=== PATIENT | female | born 1940 | race Caucasian/White ===

== ENCOUNTER → 2016-08-26 | Outpatient (CLI) | payer MEDICARE ==
[~2016-08-26] MED LIST: CALC-787 PO; CYAN10007 PO; D50KC PO; LIRA0.6P SQ; LISI5TAB PO; LVT.1T PO; MTF500T PO; SIMV10TA3 PO
--- NOTE | 2016-08-26 17:10 | Diagnostic Imaging Report ---
PROCEDURE: US Thyroid. TECHNIQUE: Multiple real-time grayscale images were obtained of the thyroid in various projections. FINDINGS: Thyromegaly. FINDINGS: The right thyroid lobe is 3.2 x 1.1 x 0.8 cm. The left lobe is 3.8 x 0.9 x 1.1 cm. The thyroid gland is heterogeneous with no focal mass identified. No significantly increased vascularity seen. IMPRESSION: Heterogeneous thyroid gland with no discrete mass. This could be sequelae of prior thyroiditis. Dictated by: Dictated on workstation # [id number]
== END ==
LOC: RAD 12:05
PROVIDERS: ATTEND Nurse Practitioner Family
DX: E01.0 Iodine-deficiency related diffuse (endemic) goiter (principal)
CPT/HCPCS: 76536

== ENCOUNTER → 2016-08-26 | Outpatient (CLI) | payer MEDICARE ==
[~2016-08-26] VITALS: Ht 152.4 cm; Wt 66.7 kg
[~2016-08-26] MED LIST changes: +ZOLEDRONATE 5 MG/100 ML (RECLAST) BTL IV ONE
[2016-08-26 13:16] VITALS: BP 126/65
[2016-08-26 13:35] VITALS: BP 126/65
== END ==
LOC: SDC 12:43
PROVIDERS: ATTEND Nurse Practitioner Family
DX: M81.0 Age-related osteoporosis without current pathological fracture (principal)
CPT/HCPCS: 96365

== ENCOUNTER → 2017-07-03 | Outpatient (CLI) | payer MEDICARE ==
[~2017-07-03] MED LIST changes: -ZOLEDRONATE 5 MG/100 ML (RECLAST) BTL IV ONE
--- NOTE | 2017-07-03 18:14 | Diagnostic Imaging Report ---
INDICATION: Osteoporosis. COMPARISON: Prior study of 06/09/2014. EXAMINATION: Bone mineral analysis of the lumbar spine and both hips was performed. FINDINGS: The bone mineral density of the lumbar spine at L2-L4 is 0.938 with a T-score of -2.2. This compares with 1.011 and -1.6. The bone mineral density of the left femoral neck is 0.758 with T-score of -2.0. This compares with 0.758 and -2.0 on prior. Bone mineral density of the right femoral neck is 0.690 with a T-score of -2.5. This compares to 0.710 and -2.4. IMPRESSION: Findings consistent with osteopenia of the lumbar spine and left femoral neck with osteoporosis of the right femoral neck. Dictated by: Dictated on workstation # [id number]
== END ==
LOC: RAD 10:51
PROVIDERS: ATTEND Nurse Practitioner Family
DX: M81.0 Age-related osteoporosis without current pathological fracture (principal); M85.88 Other specified disorders of bone density and structure, other site
CPT/HCPCS: 77080

== ENCOUNTER 2018-08-28 09:59 | Outpatient (CLI) | payer MEDICARE ==
[~2018-08-28] VITALS: Ht 152.4 cm; Wt 66.7 kg
[2018-08-28] MEDS ORDERED: ZOLEDRONATE (NON-FORMULARY) 100 ML IV ONE (10:15)
[2018-08-28 10:45] VITALS: BP 149/71
== END 2018-08-28 10:45 | disposition home or self-care (01) ==
LOC: SDC 09:59
PROVIDERS: ATTEND Nurse Practitioner Family
DX: M81.0 Age-related osteoporosis without current pathological fracture (principal)
CPT/HCPCS: 96365

== ENCOUNTER 2019-05-06 17:06 | Outpatient (CLI) | payer MEDICARE ==
[~2019-05-06] VITALS: Ht 30.5 cm; Wt 60.3 kg
--- NOTE | 2019-05-06 17:20 | NUR ---
Patient arrived on unit, in room 406. Patient oriented to room and call light.
[2019-05-06] MEDS ORDERED: ONDANSETRON 4 MG/2 ML (SDV) Z0FRAN IV PRN (17:45)
[2019-05-06 17:51] LABS: BASOPHILS % (AUTO) 0 % (0-10); EOSINOPHILS # (AUTO) 0.1 10^3/uL (0.0-0.3); EOSINOPHILS % (AUTO) 1 % (0-10); HEMATOCRIT 42 % (35-52); HEMOGLOBIN 13.8 G/DL (11.5-16.0); LYMPHOCYTES # (AUTO) 0.9 X 10^3 (1.0-4.0); LYMPHOCYTES % (AUTO) 9 % (12-44); MEAN CORPUSCULAR HEMOGLOBIN 30 PG (25-34); MEAN CORPUSCULAR HGB CONC 33 G/DL (32-36); MEAN CORPUSCULAR VOLUME 92 FL (80-99); MEAN PLATELET VOLUME 9.6 FL (7.4-10.4); MONOCYTES # (AUTO) 0.3 X 10^3 (0.0-1.0); MONOCYTES % (AUTO) 3 % (0-12); NEUTROPHILS # (AUTO) 9.3 X 10^3 (1.8-7.8); NEUTROPHILS % (AUTO) 87 % (42-75); PLATELET COUNT 310 10^3/uL (130-400); RED CELL DISTRIBUTION WIDTH 13.6 % (10.0-14.5); WHITE BLOOD COUNT 10.7 10^3/uL (4.3-11.0)
[2019-05-06 18:08] LABS: ALANINE AMINOTRANSFERASE 29 U/L (0-55); ALBUMIN 4.3 GM/DL (3.2-4.5); ALKALINE PHOSPHATASE 42 U/L (40-136); BILIRUBIN,TOTAL 0.4 MG/DL (0.1-1.0); BUN/CREATININE RATIO 31; CALCIUM 9.1 MG/DL (8.5-10.1); CARBON DIOXIDE 21 MMOL/L (21-32); CHLORIDE 106 MMOL/L (98-107); GFR ESTIMATED > 60; GLUCOSE 117 MG/DL (70-105); MAGNESIUM 1.8 MG/DL (1.6-2.4); POTASSIUM 4.3 MMOL/L (3.6-5.0); SODIUM 139 MMOL/L (135-145); TOTAL PROTEIN 7.6 GM/DL (6.4-8.2)
[2019-05-06 18:30] LABS: BAND NEUTROPHILS 3 %; EOSINOPHILS % (MANUAL) 2 %; LYMPHOCYTES % (MANUAL) 9 %; MONOCYTES % (MANUAL) 2 %; NEUTROPHILS % (MANUAL) 84 %; RBC MORPH N
[2019-05-06] MEDS: LACTATED RINGERS 2,000 ML IV SCH ×2 (18:39→19:18)
[2019-05-06 19:19] VITALS: BP 122/63
--- NOTE | 2019-05-06 20:40 | NUR ---
Spoke with tania BOYKIN and informed her that pts temperature has increased but all other vital signs remain the same. pt does not feel any better but does not feel any worse. pt states she can treat her temperature at home but isnt so sure and would rather her stay at the hospital. per tania [place] pt to go home and follow up with her office in the am if needed. pt wheeled out in wheelchair by pct with all pts belongings. pt stable at this time.
[2019-05-06 20:42] VITALS: BP 122/56
--- OUTSIDE RECORDS SUMMARY | 2019-06-02 00:44 | XMS REPORT ---
Author Author Anabel Latif Organization [facility] Address [address] [place], [place] [address] Care Team Providers Care Under Sheriff Name Role Phone Noah Latif PCP Allergies and Adverse Reactions Name Reaction Notes PENICILLINS SULFA (SULFONAMIDES) aspirin iodine Plan of Treatment Planned Activity Comments Planned Date Planned Time Plan/Goal [facility] 05/15/2019 12:00 AM Medications Active Name Start Date Estimated Completion Date SIG Co mments metformin 500 mg oral tablet lisinopril 5 mg oral tablet take 1 tablet (5 mg) by oral route once daily levothyroxine oral Vitamin D3 Complete 18 mg iron-800 mcg-150 mg oral tablet vitamin Z91-rxabq acid 500-400 mcg oral tablet Calcium 600 600 mg (1,500 mg) oral tablet Combigan 0.2-0.5 % ophthalmic drops instill 1 drop into right eye by ophthalmic route every 12 hours meclizine 25 mg oral tablet 10/14/2017 take 1 tablet (25 mg) by oral route 4 times per day as needed Ozempic 0.25 mg or 0.5 mg(2 mg/1.5 mL) subcutaneous pen injector inject 0.2 milliliter (0.25 mg) by subcutaneous route once weekly on the same day of each week, in the abdomen, thighs, or upper arm rotating injection sites Name Start Date Expiration Date SIG Comments simvastatin 10 mg oral tablet take 1 tabl et by oral route daily triamcinolone acetonide 0.5 % topical cream 12/13/2014 apply a thin layer to the affected area(s) by topical route 3 times per day promethazine-codeine 6.25-10 mg/5 mL oral syrup 11/04/2016 take 5 milliliters by oral route every 6 hours as needed, not to exceed 30 mL in 24 hours pantoprazole 40 mg oral tablet,delayed release (DR/EC) 12/17/2016 take 1 tablet (40 mg) by oral route once daily cefdinir 300 mg oral capsule 04/16/2017 grecia e 1 capsule (300 mg) by oral route every 12 hours for 7 days fluticasone 50 mcg/actuation nasal spray,suspension 04/16/2017 inhale 1 spray (50 mcg) in each nostril by intranasal route 2 times per day Keflex 500 mg oral capsule 12/29/2017 01/03/2018 take 1 capsule (500 mg) by oral route every 12 hours for 5 days Zofran ODT 4 mg oral tablet,disintegrating 12/29/2017 018 1 tablet every 8 hrs prn nausea. May repeat dose one time per 8 hour time period if not effective Discontinued Name Start Date Discontinued Date SIG Comments Victoza 3-Shree 0.6 mg/0.1 mL (18 mg/3 mL) subcutaneous pen injector 10/08/2018 Problem List Description Status Onset Calculus of kidney Active 05/31/2014 Hypothyroidism Active 09/23/2014 Hypertension Active 09/23/2014 Hyperlipemia Active 09/23/2014 Diabetes type 2, controlled Active 09/23/2014 Vital Signs Date Time BP-Sys(mm[Hg] BP-Kayleen(mm[Hg]) HR(bpm) RR(rpm) Temp WT HT HC BMI BSA BMI Percentile O2 Sat(%) 10/08/2018 3:57:00 PM 130 mmHg 84 mmHg 72 bpm 18 rpm 97.8 F 134 lbs 60 in 26.1698 kg/m 1.6041 m 97 % 04/09/2018 9:55:00 AM 130 mmHg 78 mmHg 62 bpm 14 rpm 97.9 F 153.25 lbs 60 i n 29.93 kg/m2 1.72 m2 98 % 01/08/2018 8:12:00 AM 130 mmHg 88 mmHg 81 bpm 14 rpm 98.1 F 153.375 lbs 60 i n 29.9537 kg/m 1.7161 m 97 % 09/08/2017 3:04:00 PM 144 mmHg 70 mmHg 73 bpm 16 rpm 98.6 F 153.75 lbs 60 in 30.03 kg/m2 1.72 m2 98 % 04/16/2017 10:59:00 AM 120 mmHg 76 mmHg 88 bpm 16 rpm 11/15/2016 9:20:00 AM 120 mmHg 64 mmHg 82 bpm 16 rpm 98.2 F 154 lbs 60 in 30.08 kg/m2 1.72 m2 98 % 11/04/2016 3:38:00 PM 134 mmHg 90 mmHg 90 bpm 16 rpm 98.3 F 153 lbs 60 in 29.8805 kg/m 1.714 m 97 % 07/11/2014 10:31:00 AM 126 mmHg 74 mmHg 68 bpm 18 rpm 146.5 lbs 60 in 28.61 kg/m2 1.68 m2 98 % 05/18/2014 11:17:00 AM 150 lbs 60 in 29.2946 kg/m 1.6972 m 05/02/2014 10:54:00 AM 149 lbs 60 in 29.10 kg/ m2 1.69 m2 Social History Name Description Comments Alcohol Light Tobacco Never smoker History of Procedures Date Ordered Description Order Status 03/18/2017 12:00 AM [facility] MEDICARE - flu vaccine administratio n Reviewed 03/18/2017 12:00 AM INFLUENZA VACCINE SPLT PRSRV FREE INC AN TIGEN IM Reviewed 09/08/2017 12:00 AM RADEX ELBOW 2 VIEWS Reviewed 04/02/2018 12:00 AM X-RAY EXAM OF ABDOMEN Reviewed 03/09/2018 12:00 AM [facility] MEDICARE - flu vaccine administratio n Reviewed 03/09/2018 12:00 AM INFLUENZA VACCINE SPLT PRSRV FREE INC AN TIGEN IM Reviewed 04/09/2018 12:00 AM URINALYSIS AUTO W/SCOPE Reviewed 10/07/2018 12:00 AM X-RAY EXAM OF ABDOMEN Reviewed Results Summary Date and Description Results 04/09/2018 2:41 PM COLOR YELLOW APPEARANCE DANIEL R SPEC GRAV 1.010 pH 5.5 PROTEIN NEGATIVE GLUCOSE NEGATIVE KETONE NEGATIVE BILIRUBIN NEGATIVE BLOOD NEGATIVE NITRITE NEGATIVE LEUK SCREEN TRACE WBC/HPF 0-5 RBC/HPF NEGATIVE CASTS/LPF NEGATIVE CRYSTALS TRACE AMORPH MUCOUS THRDS NEGATIVE BACTERIA FEW EPITH CELLS FEW SQUAMOUS TRICHOMONAS NEGATIVE YEAST NEGATIVE CULT SET UP? NO History Of Immunizations Name Date Admin Mfg Name Mfg Code Trade Name Lot# Route Inj Vis Given Vis Pub CVX Influenza 03/18/2017 sanofi pasteur PMC FLUZONE-HIGH DOSE [id number] In tramuscular Left Deltoid 03/18/2017 01/06/2015 135 Influenza 03/09/2018 sanofi pasteur PMC FLUZONE-HIGH DOSE [id number] Int ramuscular Left Deltoid 03/09/2018 06/02/2018 135 History of Past Illness Name Date of Onset Comments Calculus of kidney 05/31/2014 Hypothyroidism 09/23/2014 Hypertension 09/23/2014 Hyperlipemia 09/23/2014 Diabetes type 2, controlled 09/23/2014 Calculus of kidney May 18 2014 2:28PM Calculus of kidney Jul 11 2014 10:34AM Diabetes type 2, controlled Jul 11 2014 10:34AM Hyperlipemia Jul 11 2014 10:34AM Hypertension Jul 11 2014 10:34AM Hypothyroidism Jul 11 2014 10:34AM PND (post-nasal drip) Nov 04 2016 3:41PM GERD (gastroesophageal reflux disease) Nov 04 2016 3:41PM Cough Nov 04 2016 3:41PM Acute mucoid otitis media of right ear Nov 15 2016 9:23AM Vertigo Nov 15 2016 9:23AM Flu Vaccine Mar 18 2017 1:40PM Acute right otitis media Apr 16 2017 11:10AM Vertigo Apr 16 2017 11:10AM Elbow pain, left Sep 08 2017 3:08PM Kidney stone Jan 01 2018 12:42PM Kidney Stones Jan 08 2018 8:15AM Flu Vaccine Mar 09 2018 10:46AM Kidney Stones Apr 09 2018 9:59AM Kidney Stones Oct 08 2018 3:58PM Kidney stone Oct 13 2018 3:07PM Payers Insurance Name Company Name Plan Name Plan Number Policy Number Horace cy Group Number Start Date Medicare RHC Medicare RHC [id number] N/ A [facility] [id number] N/ A Medicare Part A Medicare Part A [id number] August Medicare Part A Medicare - Lab/Xray [id number] August Medicare RHC Medicare RHC [id number] FriOctober 31, 2016 Medicare Part B Medicare Of [place] [id number] N/A History of Encounters Visit Date Visit Type Provider 10/08/2018 Office visit Noah Latif MD 04/09/2018 Office visit Noah Latif MD 03/09/2018 Nurse visit JONATHON ALFARO OUTSOLE SCHEDULER 01/08/2018 Office visit Noah Latif MD 12/29/2017 Surgery Noah Latif MD 09/08/2017 Office visit JONATHON ALFARO OUTSOLE SCHEDULER 04/16/2017 Office visit JONATHON ALFARO OUTSOLE SCHEDULER 03/18/2017 Nurse visit JONATHON ALFARO OUTSOLE SCHEDULER 11/15/2016 Office visit JONATHON ALFARO OUTSOLE SCHEDULER 11/04/2016 Office visit JONATHON ALFARO OUTSOLE SCHEDULER 07/11/2014 Office visit JONATHON ALFARO OUTSOLE SCHEDULER 05/18/2014 Office visit Jonathan Staton MD 05/02/2014 Office visit Jonathan Staton MD 04/19/2014 [facility] Jonathan Staton MD 04/19/2014 [facility] Salvador Crisostomo MD 04/19/2014 [facility] Jonathan Staton MD
--- OUTSIDE RECORDS SUMMARY | 2019-06-02 00:44 | XMS REPORT ---
Author Author Anabel Latif [facility] Address [address] [place], [place] [address] Care Team Providers Care Maxillofacial Pathology Name Role Phone Noah Latif PCP Allergies and Adverse Reactions Name Reaction Notes PENICILLINS SULFA (SULFONAMIDES) Aspirin iodine Plan of Treatment Planned Activity Comments Planned Date Planned Time Plan/Goal ABDOMEN ONE VIEW 10/07/2018 12:00 AM Medications Active Name Start Date Estimated Completion Date SIG Co mments metformin 500 mg oral tablet Victoza 3-Shree 0.6 mg/0.1 mL (18 mg/3 mL) subcutaneous pen injector lisinopril 5 mg oral tablet take 1 tablet (5 mg) by oral route once daily levothyroxine oral Vitamin D3 Complete 18 mg iron-800 mcg-150 mg oral tablet vitamin C88-eetsr acid 500-400 mcg oral tablet Calcium 600 600 mg (1,500 mg) oral tablet Combigan 0.2-0.5 % ophthalmic drops instill 1 drop into right eye by ophthalmic route every 12 hours meclizine 25 mg oral tablet 10/14/2017 take 1 tablet (25 mg) by oral route 4 times per day as needed Name Start Date Expiration Date SIG Comments [...] 8 hour time period if not effective Problem List Description Status Onset Calculus of kidney Active 05/31/2014 Hypothyroidism Active 09/23/2014 Hypertension Active 09/23/2014 Hyperlipemia Active 09/23/2014 Diabetes type 2, controlled Active 09/23/2014 Vital Signs Date Time BP-Sys(mm[Hg] BP-Kayleen(mm[Hg]) HR(bpm) RR(rpm) Temp WT HT HC BMI BSA BMI Percentile O2 Sat(%) 04/09/2018 9:55:00 AM 130 mmHg 78 mmHg 62 bpm 14 rpm 97.9 F 153.25 lbs 60 i n 29.9293 kg/m 1.7154 m 98 % 01/08/2018 8:12:00 AM 130 mmHg 88 mmHg 81 bpm 14 rpm 98.1 F 153.375 lbs 60 i n 29.95 kg/m2 1.72 m2 97 % 09/08/2017 3:04:00 PM 144 mmHg 70 mmHg 73 bpm 16 rpm 98.6 F 153.75 lbs 60 in 30.0269 kg/m 1.7182 m 98 % 04/16/2017 10:59:00 AM 120 mmHg 76 mmHg 88 bpm 16 rpm 11/15/2016 9:20:00 AM 120 mmHg 64 mmHg 82 bpm 16 rpm 98.2 F 154 lbs 60 in 30.08 kg/m2 1.7196 m 98 % 11/04/2016 3:38:00 PM 134 mmHg 90 mmHg 90 bpm 16 rpm 98.3 F 153 lbs 60 in 29.8805 kg/m 1.71 m2 97 % 07/11/2014 10:31:00 AM 126 mmHg 74 mmHg 68 bpm 18 rpm 146.5 lbs 60 in 28.61 kg/m2 1.6772 m 98 % 05/18/2014 11:17:00 AM 150 lbs 60 in 29.2946 kg/m 1.70 m2 05/02/2014 10:54:00 AM 149 lbs 60 in 29.10 kg/ m2 1.6915 m Social History Name Description Comments Alcohol Light Tobacco Never smoker History of Procedures Date Ordered Description Order Status 03/18/2017 12:00 AM [facility] MEDICARE - flu vaccine administratio n Reviewed 03/18/2017 12:00 AM INFLUENZA VACCINE SPLT PRSRV FREE INC AN TIGEN IM Reviewed 09/08/2017 12:00 AM RADEX ELBOW 2 VIEWS Reviewed 04/02/2018 12:00 AM X-RAY EXAM OF ABDOMEN Reviewed 03/09/2018 12:00 AM [facility] MEDICARE - flu vaccine administratio n Reviewed 03/09/2018 12:00 AM INFLUENZA VACCINE SPLT PRSRV FREE INC AN TIGEN IM Reviewed 04/09/2018 12:00 AM URINALYSIS AUTO W/SCOPE Reviewed Results Summary Date and Description Results [...] Influenza 03/18/2017 sanofi pasteur PMC FLUZONE-HIGH DOSE [id number] In tramuscular Left Deltoid 03/18/2017 01/06/2015 135 Influenza 03/09/2018 sanofi pasteur PMC FLUZONE-HIGH DOSE [id number] Int ramuscular Left Deltoid 03/09/2018 06/02/2018 135 [...] 10:46AM Kidney Stones Apr 09 2018 9:59AM Payers Insurance Name Company Name Plan Name Plan Number Policy Number Horace cy Group Number Start Date Medicare RH Medicare RH [id number] N/ A [id number] N/ A Medicare Part A Medicare Part A [id number] August Medicare Part A Medicare - Lab/Xray [id number] August Medicare RH Medicare RHC [id number] FriOctober 31, 2016 Medicare Part B Medicare Of [place] [id number] N/A History of Encounters Visit Date Visit Type Provider 04/09/2018 Office visit Noah Latif MD 03/09/2018 Nurse visit JONATHON ALFARO SUPERVISOR PLASTERING 01/08/2018 Office visit Noah Latif MD 12/29/2017 Surgery Noah Latif MD 09/08/2017 Office visit JONATHON ALFARO SUPERVISOR PLASTERING 04/16/2017 Office visit JONATHON ALFARO SUPERVISOR PLASTERING 03/18/2017 Nurse visit JONATHON ALFARO SUPERVISOR PLASTERING 11/15/2016 Office visit JONATHON ALFARO SUPERVISOR PLASTERING 11/04/2016 Office visit JONATHON ALFARO SUPERVISOR PLASTERING 07/11/2014 Office visit JONATHON ALFARO SUPERVISOR PLASTERING 05/18/2014 Office visit Jonathan Staton MD 05/02/2014 Office visit Jonathan Staton MD 04/19/2014 Hospital Jonathan Staton MD 04/19/2014 [facility] Salvador Crisostomo MD 04/19/2014 Hospital Jonathan Staton MD
--- OUTSIDE RECORDS SUMMARY | 2019-06-02 00:44 | XMS REPORT ---
Author Author Anabel Latif [facility] Address [address] [place], [place] [id number] Care Team Providers Care Overnight Houseperson Name Role Phone Noah Latif PCP Allergies and Adverse Reactions Name Reaction Notes PENICILLINS SULFA (SULFONAMIDES) aspirin iodine Plan of Treatment Not available. Medications Active Name Start Date Estimated Completion Date SIG Co mments metformin 500 mg oral tablet lisinopril 5 mg oral tablet take 1 tablet (5 mg) by oral route once daily levothyroxine oral Vitamin D3 Complete 18 mg iron-800 mcg-150 mg oral tablet vitamin S93-augmr acid 500-400 mcg oral tablet Calcium 600 [...] 05/02/2014 10:54:00 AM 149 lbs 60 in 29.0993 k g/m 1.69 m2 Social History Name Description Comments Alcohol Light Tobacco Never smoker History of Procedures Date Ordered Description Order Status 03/18/2017 12:00 AM [facility] MEDICARE - flu vaccine administratio n Reviewed 03/18/2017 12:00 AM INFLUENZA VACCINE SPLT PRSRV FREE INC AN TIGEN IM Reviewed 09/08/2017 12:00 AM RADEX ELBOW 2 VIEWS Reviewed 04/02/2018 12:00 AM X-RAY EXAM OF ABDOMEN Reviewed 03/09/2018 12:00 AM [facility] MEDICARE - flu vaccine administratio n Reviewed 03/09/2018 12:00 AM INFLUENZA VACCINE SPLT PRSRV FREE INC AN TIGEN IM Reviewed 04/09/2018 12:00 AM URINALYSIS AUTO W/SCOPE Reviewed 10/07/2018 12:00 AM X-RAY EXAM OF ABDOMEN Returned Results Summary Date and Description Results 04/09/2018 [...] Influenza 03/18/2017 sanofi pasteur PMC FLUZONE-HIGH DOSE [id number] In tramuscular Left Deltoid 03/18/2017 01/06/2015 135 Influenza 03/09/2018 sanofi pasteur PMC FLUZONE-HIGH DOSE [id number] Int ramuscular Left Deltoid 03/09/2018 06/02/2018 135 [...] 9:59AM Kidney Stones Oct 08 2018 3:58PM Payers Insurance Name Company Name Plan Name Plan Number Policy Number Horace cy Group Number Start Date Medicare RHC Medicare RHC [id number] N/ A [facility] [id number] N/ A Medicare Part A Medicare Part A [id number] August Medicare Part A Medicare - Lab/Xray [id number] August Medicare RHC Medicare RHC [id number] FriOctober 31, 2016 Medicare Part B Medicare Of [place] [id number] N/A History of Encounters Visit Date Visit Type Provider 10/08/2018 Office visit Noah Latif MD 04/09/2018 Office visit Noah Latif MD 03/09/2018 Nurse visit JONATHON ALFARO COW TRIMMER 01/08/2018 Office visit Noah Latif MD 12/29/2017 Surgery Noah Latif MD 09/08/2017 Office visit JONATHON ALFARO COW TRIMMER 04/16/2017 Office visit JONATHON ALFARO COW TRIMMER 03/18/2017 Nurse visit JONATHON ALFARO COW TRIMMER 11/15/2016 Office visit JONATHON ALFARO COW TRIMMER 11/04/2016 Office visit JONATHON ALFARO COW TRIMMER 07/11/2014 Office visit JONATHON ALFARO APRN 05/18/2014 Office visit V Maddie Staton MD 05/02/2014 Office visit Jonathan Staton MD 04/19/2014 [facility] Jonathan Staton MD 04/19/2014 [facility] Eli Crisostomo MD 04/19/2014 [facility] Jonathan Staton MD
--- OUTSIDE RECORDS SUMMARY | 2019-06-02 00:45 | XMS REPORT ---
Author Author Anabel ALFARO [facility] Address [address] [place], [place] [id number] Care Team Providers Care Network Controller Name Role Phone JONATHON ALFARO PCP Allergies and Adverse Reactions Name Reaction Notes PENICILLINS SULFA (SULFONAMIDES) Aspirin iodine Plan of Treatment Planned Activity Comments Planned Date Planned Time Plan/Goal ABDOMEN ONE VIEW 04/02/2018 12:00 AM Medications Active Name Start Date Estimated Completion Date SIG Co mments metformin 500 mg oral tablet Victoza 3-Shree 0.6 mg/0.1 mL (18 mg/3 mL) subcutaneous pen injector lisinopril 5 mg oral tablet take 1 tablet (5 mg) by oral route once daily levothyroxine oral Vitamin D3 Complete 18 mg iron-800 mcg-150 mg oral tablet vitamin F49-rboyi acid 500-400 mcg oral tablet Calcium 600 600 mg (1,500 mg) oral tablet Combigan 0.2-0.5 % ophthalmic drops instill 1 drop into right eye by ophthalmic route every 12 hours meclizine 25 mg oral tablet 10/14/2017 take 1 tablet (25 mg) by oral route 4 times per day as needed Keflex 500 mg oral capsule 12/29/2017 01/03/2018 take 1 capsule (500 mg) by oral route every 12 hours for 5 days Zofran ODT 4 mg oral tablet,disintegrating 12/29/2017 018 1 tablet every 8 hrs prn nausea. May repeat dose one time per 8 hour time period if not effective Name Start Date Expiration Date SIG Comments [...] by intranasal route 2 times per day Problem List Description Status Onset Calculus of kidney Active 05/31/2014 Hypothyroidism Active 09/23/2014 Hypertension Active 09/23/2014 Hyperlipemia Active 09/23/2014 Diabetes type 2, controlled Active 09/23/2014 Vital Signs Date Time BP-Sys(mm[Hg] BP-Kayleen(mm[Hg]) HR(bpm) RR(rpm) Temp WT HT HC BMI BSA BMI Percentile O2 Sat(%) 09/08/2017 3:04:00 PM 144 mmHg 70 mmHg [...] Ordered Description Order Status 03/18/2017 12:00 AM [facility] MEDICARE - flu vaccine administratio n Reviewed 03/18/2017 12:00 AM INFLUENZA VACCINE SPLT PRSRV FREE INC AN TIGEN IM Reviewed 09/08/2017 12:00 AM RADEX ELBOW 2 VIEWS Reviewed Results Summary Not available. History Of Immunizations Name Date Admin Mfg Name Mfg Code Trade Name Lot# Route Inj Vis Given Vis Pub CVX Influenza 03/18/2017 sanofi [facility] PMC FLUZONE-HIGH DOSE [id number] In tramuscular Left Deltoid 03/18/2017 01/06/2015 135 History of Past Illness Name Date [...] 3:08PM Kidney stone Jan 01 2018 12:42PM Payers Insurance Name Company Name Plan Name Plan Number Policy Number Horace cy Group Number Start Date Medicare RHC Medicare RHC [id number] FriOctober 31, 2016 BCBS [facility] [id number] N/ A Medicare Part A Medicare Part A [id number] August Medicare Part A Medicare - Lab/Xray [id number] August Medicare Part B Medicare Of [place] [id number] N/A History of Encounters Visit Date Visit Type Provider 09/08/2017 Office visit JONATHON ALFARO BEEF SPECIALIST 04/16/2017 Office visit JONATHON ALFARO BEEF SPECIALIST 03/18/2017 Nurse visit JONATHON ALFARO BEEF SPECIALIST 11/15/2016 Office visit JONATHON ALFARO BEEF SPECIALIST 11/04/2016 Office visit JONATHON ALFARO BEEF SPECIALIST 07/11/2014 Office visit JONATHON ALFARO BEEF SPECIALIST 05/18/2014 Office visit V Maddie Staton MD 05/02/2014 Office visit V Maddie Staton MD 04/19/2014 [facility] V Maddie Staton MD 04/19/2014 [facility] Eli Crisosotmo MD 04/19/2014 [facility] Jonathan Staton MD
--- OUTSIDE RECORDS SUMMARY | 2019-06-02 00:45 | XMS REPORT ---
Author Author Anabel ALFARO [facility] Address [address] [place], [place] [id number] Care Team Providers Care Agency Owner Name Role Phone JONATHON ALFARO PCP Unavailable Allergies and Adverse Reactions Name Reaction Notes PENICILLINS SULFA (SULFONAMIDES) Aspirin iodine Plan of Treatment Not available. Medications Active Name Start Date Estimated Completion Date SIG Co mments metformin 500 mg oral tablet Victoza 3-Shree 0.6 mg/0.1 mL (18 mg/3 mL) subcutaneous pen injector lisinopril 5 mg oral tablet take 1 tablet (5 mg) by oral route once daily levothyroxine oral Vitamin D3 Complete 18 mg iron-800 mcg-150 mg oral tablet vitamin G01-ftybl acid 500-400 mcg oral tablet Calcium 600 600 mg (1,500 mg) oral tablet Combigan 0.2-0.5 % ophthalmic drops instill 1 drop into right eye by ophthalmic route every 12 hours fluticasone 50 mcg/actuation nasal spray,suspension 11/04/2016 inhale 1 spray (50 mcg) in each nostril by intranasal route 2 times per day pantoprazole 40 mg oral tablet,delayed release (DR/EC) 11/04/2016 take 1 tablet (40 mg) by oral route once daily cefdinir 300 mg oral capsule 11/15/2016 11/22/2016 grecia e 1 capsule (300 mg) by oral route every 12 hours for 7 days meclizine 25 mg oral tablet 11/15/2016 take 1 tablet (25 mg) by oral [...] to exceed 30 mL in 24 hours Problem List Description Status Onset Calculus of kidney Active 05/31/2014 Hypothyroidism Active 09/23/2014 Hypertension Active 09/23/2014 Hyperlipemia Active 09/23/2014 Diabetes type 2, controlled Active 09/23/2014 Vital Signs Date Time BP-Sys(mm[Hg] BP-Kayleen(mm[Hg]) HR(bpm) RR(rpm) Temp WT HT HC BMI BSA BMI Percentile O2 Sat(%) 11/15/2016 9:20:00 AM 120 mmHg 64 mmHg [...] Light Tobacco Never smoker History of Procedures Not available. Results Summary Date and Description Results 04/20/2014 8:15 AM GLUCOSE 125.0 mg/dLSODIUM 14 2.0 mmol/LPOTASSIUM 4.10 mmol/LCHLORIDE 110.0 mmol/LCO2 23.0 mmol/LBUN 14.0 mg/dLCREATININE 0.80 mg/dLCALCIUM 8.30 mg/dLAGE 73 GFR NonAA 71 GFR AA 86 eGFR 60 eGFR AA* 60 WBC 10.7 RBC 4.03 HGB 12.10 g/dLHCT 36.60 %MCV 91.0 fLMCH 30.0 pgMCHC 33.10 g/dLRDW SD 43 RDW CV 13.0 %MPV 10.10 fLPLT 238 NRBC# 0.00 NRBC% 0.0 %NEUT 75.0 %%LYMP 18.90 %%MONO 6.0 %%EOS 0.0 %%BASO 0.10 %#NEUT 8.00 #LYMP 2.01 #MONO 0.64 #EOS 0.00 #BASO 0.01 MANUAL DIFF NOT IND History Of Immunizations Not available. History of Past Illness Name Date of [...] 2016 9:23AM Vertigo Nov 15 2016 9:23AM Payers Insurance Name Company Name Plan Name Plan Number Policy Number Horace cy Group Number Start Date Medicare RHC Medicare RHC [id number] FriOctober 31, 2016 BCBS [facility] [id number] N/ A Medicare Part A Medicare Part A [id number] August Medicare Part A Medicare - Lab/Xray [id number] August Medicare Part B Medicare Of [place] [id number] N/A History of Encounters Visit Date Visit Type Provider 11/15/2016 Office visit JONATHON ALFARO CLIENT SERVICE COORDINATOR 11/04/2016 Office visit JONATHON ALFARO CLIENT SERVICE COORDINATOR 07/11/2014 Office visit JONATHON ALFARO CLIENT SERVICE COORDINATOR 05/18/2014 Office visit Jonathan Staton MD 05/02/2014 Office visit Jonathan Staton MD 04/19/2014 Hospital Jonathan Staton MD 04/19/2014 [facility] Salvador Crisostomo MD 04/19/2014 [facility] Jonathan Staton MD
--- OUTSIDE RECORDS SUMMARY | 2019-06-02 00:45 | XMS REPORT ---
Author Author Anabel ALFARO [facility] Address [address] [place], [place] [id number] Care Team Providers Care Fancy Packer Name Role Phone JONATHON ALFARO PCP Unavailable Allergies and Adverse Reactions Name Reaction Notes PENICILLINS SULFA (SULFONAMIDES) Aspirin iodine Plan of Treatment Planned Activity Comments Planned Date Planned Time Plan/Goal High-Dose Flu vaccine 65 yrs & older, Qu adrivalent, Preservative-free - RHC Medicare 03/18/2017 12:00 AM Medications Active Name Start Date Estimated Completion Date SIG Co mments metformin 500 mg oral tablet Victoza 3-Shree 0.6 mg/0.1 mL (18 mg/3 mL) subcutaneous pen injector lisinopril 5 mg oral tablet take 1 tablet (5 mg) by oral route once daily levothyroxine oral Vitamin D3 Complete 18 mg iron-800 mcg-150 mg oral tablet vitamin L74-xymfk acid 500-400 mcg oral tablet Calcium 600 600 mg (1,500 mg) oral tablet Combigan 0.2-0.5 % ophthalmic drops instill 1 drop into right eye by ophthalmic route every 12 hours fluticasone 50 mcg/actuation nasal spray,suspension 11/04/2016 inhale 1 spray (50 mcg) in each nostril by intranasal route 2 times per day meclizine 25 mg oral tablet 11/15/2016 take 1 tablet (25 mg) by oral route 4 times per day as needed pantoprazole 40 mg oral tablet,delayed release (DR/EC) 12/17/2016 take 1 tablet (40 mg) by oral route once daily Name Start Date Expiration Date SIG Comments [...] to exceed 30 mL in 24 hours cefdinir 300 mg oral capsule 11/15/2016 11/22/2016 grecia e 1 capsule (300 mg) by oral route every 12 hours for 7 days Problem List Description Status Onset Calculus of [...] History of Procedures Not available. Results Summary Not available. History Of Immunizations Not available. History of [...] 9:23AM Flu Vaccine Mar 18 2017 1:40PM Payers Insurance Name Company Name Plan Name Plan Number Policy Number Horace cy Group Number Start Date Medicare RHC Medicare RHC [id number] FriOctober 31, 2016 [facility] [id number] N/ A Medicare Part A Medicare Part A [id number] August Medicare Part A Medicare - Lab/Xray [id number] August Medicare Part B Medicare Of [place] [id number] N/A History of Encounters Visit Date Visit Type Provider 03/18/2017 Nurse visit JONATHON ALFARO DRAW STRING KNOTTER 11/15/2016 Office visit JONATHON ALFARO DRAW STRING KNOTTER 11/04/2016 Office visit JONATHON ALFARO DRAW STRING KNOTTER 07/11/2014 Office visit JONATHON ALFARO DRAW STRING KNOTTER 05/18/2014 Office visit Jonathan Staton MD 05/02/2014 Office visit Jonathan Staton MD 04/19/2014 Hospital Jonathan Staton MD 04/19/2014 [facility] Salvador Crisostomo MD 04/19/2014 [facility] Jonathan Staton MD
--- OUTSIDE RECORDS SUMMARY | 2019-06-02 00:45 | XMS REPORT ---
Author Author Anabel Latif [facility] Address [address] [place], [place] [phone] Care Team Providers Care Head Paper Tester Name Role Phone Noah Latif PCP Allergies [...] mg iron-800 mcg-150 mg oral tablet vitamin R80-seprb acid 500-400 mcg oral tablet Calcium 600 [...] HC BMI BSA BMI Percentile O2 Sat(%) 01/08/2018 8:12:00 AM 130 mmHg 88 mmHg [...] Ordered Description Order Status 03/18/2017 12:00 AM [facility] MEDICARE - flu vaccine administratio n Reviewed 03/18/2017 12:00 AM INFLUENZA VACCINE SPLT PRSRV FREE INC AN TIGEN IM Reviewed 09/08/2017 12:00 AM RADEX ELBOW 2 VIEWS Reviewed Results Summary Not available. History Of Immunizations Name Date Admin Mfg Name Mfg Code Trade Name Lot# Route Inj Vis Given Vis Pub CVX Influenza 03/18/2017 sanofi pasteur PMC FLUZONE-HIGH DOSE [id number] In tramuscular Left Deltoid 03/18/2017 01/06/2015 135 [...] 12:42PM Kidney Stones Jan 08 2018 8:15AM Payers Insurance Name Company Name Plan Name Plan Number Policy Number Horace cy Group Number Start Date Medicare [facility] Medicare [facility] [id number] FriOctober 31, 2016 [id number] N/ A Medicare Part A Medicare Part A [id number] August Medicare Part A Medicare - Lab/Xray [id number] August Medicare Part B Medicare Of [place] [id number] N/A History of Encounters Visit Date Visit Type Provider 01/08/2018 Office visit Noah Latif MD 12/29/2017 Surgery Noah Latif MD 09/08/2017 Office visit JONATHON ALFRAO DETAILER PHARMACEUTICALS 04/16/2017 Office visit JONATHON ALFARO DETAILER PHARMACEUTICALS 03/18/2017 Nurse visit JONATHON ALFARO DETAILER PHARMACEUTICALS 11/15/2016 Office visit JONATHON ALFARO DETAILER PHARMACEUTICALS 11/04/2016 Office visit JONATHON ALFARO DETAILER PHARMACEUTICALS 07/11/2014 Office visit JONATHON ALFARO DETAILER PHARMACEUTICALS 05/18/2014 Office visit Jonathan Staton MD 05/02/2014 Office visit Jonathan Staton MD 04/19/2014 Hospital Jonathan Staton MD 04/19/2014 [facility] Salvador Crisostomo MD 04/19/2014 [facility] Jonathan Staton MD
--- OUTSIDE RECORDS SUMMARY | 2019-06-02 00:45 | XMS REPORT ---
Author Author Anabel ALFARO [facility] Address [address] [place], [place] [phone] Care Team Providers Care Poultry Scalder Name Role Phone JONATHON ALFARO PCP Allergies [...] mg iron-800 mcg-150 mg oral tablet vitamin I01-afprt acid 500-400 mcg oral tablet Calcium 600 [...] Ordered Description Order Status 03/18/2017 12:00 AM [facility] MEDICARE - flu vaccine administratio n Reviewed 03/18/2017 12:00 AM INFLUENZA VACCINE SPLT PRSRV FREE INC AN TIGEN IM Reviewed 09/08/2017 12:00 AM RADEX ELBOW 2 VIEWS Reviewed 03/09/2018 12:00 AM INFLUENZA VACCINE SPLT PRSRV FREE INC AN TIGEN IM Reviewed Results Summary Not available. History Of Immunizations Name Date Admin Mfg Name Mfg Code Trade Name Lot# Route Inj Vis Given Vis Pub CVX Influenza 03/18/2017 sanofi pasteur PMC FLUZONE-HIGH DOSE [id number] In tramuscular Left Deltoid 03/18/2017 01/06/2015 135 Influenza 03/09/2018 sanofi pasteur PMC FLUZONE-HIGH DOSE [id number] Int ramuscular Left Deltoid 03/09/2018 06/02/2017 135 History of Past Illness Name Date [...] 8:15AM Flu Vaccine Mar 09 2018 10:46AM Payers Insurance Name Company Name Plan Name Plan Number Policy Number Horace cy Group Number Start Date Medicare [facility] Medicare [facility] [id number] FriOctober 31, 2016 BCBS [facility] [id number] N/ A Medicare Part A Medicare Part A [id number] August Medicare Part A Medicare - Lab/Xray [id number] August Medicare Part B Medicare Of [place] [id number] N/A History of Encounters Visit Date Visit Type Provider 03/09/2018 Nurse visit JONATHON ALFARO CHAIN MORTISER OPERATOR 01/08/2018 Office visit Noah Latif MD 12/29/2017 Surgery Noah Latif MD 09/08/2017 Office visit JONATHON ALFARO CHAIN MORTISER OPERATOR 04/16/2017 Office visit JONATHON ALFARO CHAIN MORTISER OPERATOR 03/18/2017 Nurse visit JONATHON ALFARO CHAIN MORTISER OPERATOR 11/15/2016 Office visit JONATHON ALFARO CHAIN MORTISER OPERATOR 11/04/2016 Office visit JONATHON ALFARO CHAIN MORTISER OPERATOR 07/11/2014 Office visit JONATHON ALFARO CHAIN MORTISER OPERATOR 05/18/2014 Office visit Jonathan Staton MD 05/02/2014 Office visit Jonathan Staton MD 04/19/2014 [facility] Jonathan Staton MD 04/19/2014 [facility] Salvador Crisostomo MD 04/19/2014 [facility] Jonathan Staton MD
--- OUTSIDE RECORDS SUMMARY | 2019-06-02 00:45 | XMS REPORT ---
Author Author Anabel ALFARO [facility] Address [address] [place], [place] [address] Care Team Providers Care Credit Correspondence Clerk Name Role Phone JONATHON ALFARO PCP Unavailable [...] mg iron-800 mcg-150 mg oral tablet vitamin J22-krmnc acid 500-400 mcg oral tablet Calcium 600 600 mg (1,500 mg) oral tablet Combigan 0.2-0.5 % ophthalmic drops instill 1 drop into right eye by ophthalmic route every 12 hours triamcinolone acetonide 0.5 % topical cream 12/13/2014 apply a thin layer to the affected area(s) by topical route 3 times per day fluticasone 50 mcg/actuation nasal spray,suspension 11/04/2016 inhale 1 spray (50 mcg) in each nostril by intranasal route 2 times per day pantoprazole 40 mg oral tablet,delayed release (DR/EC) 11/04/2016 take 1 tablet (40 mg) by oral route once daily promethazine-codeine 6.25-10 mg/5 mL oral syrup 11/04/2016 take 5 milliliters by oral route every 6 hours as needed, not to exceed 30 mL in 24 hours Name Start Date Expiration Date SIG Comments simvastatin 10 mg oral tablet take 1 tabl et by oral route daily Problem List Description Status Onset Calculus of kidney Active 05/31/2014 Hypothyroidism Active 09/23/2014 Hypertension Active 09/23/2014 Hyperlipemia Active 09/23/2014 Diabetes type 2, controlled Active 09/23/2014 Vital Signs Date Time BP-Sys(mm[Hg] BP-Kayleen(mm[Hg]) HR(bpm) RR(rpm) Temp WT HT HC BMI BSA BMI Percentile O2 Sat(%) 11/04/2016 3:38:00 PM 134 mmHg 90 mmHg 90 bpm 16 rpm 98.3 F 153 lbs 60 in 29.88 kg/m2 1.71 m2 97 % 07/11/2014 10:31:00 AM 126 mmHg 74 mmHg 68 bpm 18 rpm 146.5 lbs 60 in 28.611 kg/m 1.6772 m 98 % 05/18/2014 11:17:00 AM 150 lbs 60 in 29.29 kg /m2 1.70 m2 05/02/2014 10:54:00 AM 149 lbs 60 in 29.0993 k g/m 1.6915 m Social History Name Description Comments [...] 2016 3:41PM Cough Nov 04 2016 3:41PM Payers Insurance Name Company Name Plan Name Plan Number Policy Number Horace cy Group Number Start Date Medicare RHC Medicare RHC [id number] FriOctober 31, 2016 [id number] N/ A Medicare Part A Medicare Part A [id number] August Medicare Part A Medicare - Lab/Xray [id number] August Medicare Part B Medicare Of [place] [id number] N/A History of Encounters Visit Date Visit Type Provider 11/04/2016 Office visit JONATHON ALFARO TEACHER ASST 07/11/2014 Office visit JONATHON ALFARO TEACHER ASST 05/18/2014 Office visit Jonathan Staton MD 05/02/2014 Office visit Jonathan Staton MD 04/19/2014 Hospital Jonathan Staton MD 04/19/2014 [facility] Salvador Crisostomo MD 04/19/2014 [facility] Jonathan Staton MD
--- OUTSIDE RECORDS SUMMARY | 2019-06-02 00:45 | XMS REPORT ---
Author Author Anabel ALFARO [facility] Address [address] [place], [place] [address] Care Team Providers Care Clinical Therapist Name Role Phone JONATHON ALFARO PCP Unavailable [...] mg iron-800 mcg-150 mg oral tablet vitamin N77-sqfoi acid 500-400 mcg oral tablet Calcium 600 600 mg (1,500 mg) oral tablet Combigan 0.2-0.5 % ophthalmic drops instill 1 drop into right eye by ophthalmic route every 12 hours meclizine 25 mg oral tablet 11/15/2016 take [...] by intranasal route 2 times per day Name Start Date Expiration Date SIG Comments [...] HC BMI BSA BMI Percentile O2 Sat(%) 04/16/2017 10:59:00 AM 120 mmHg 76 mmHg 88 bpm 16 rpm 11/15/2016 9:20:00 AM 120 mmHg 64 mmHg 82 bpm 16 rpm 98.2 F 154 lbs 60 in 30.0758 kg/m 1.7196 m 98 % 11/04/2016 3:38:00 PM [...] Pub CVX Influenza 03/18/2017 sanofi pasteur PMC Fluzone High-Dose [id number] In tramuscular Left Deltoid 03/18/2017 01/06/2015 135 [...] 2017 11:10AM Vertigo Apr 16 2017 11:10AM Payers Insurance Name Company Name Plan Name Plan Number Policy Number Horace cy Group Number Start Date Medicare RHC Medicare RHC [id number] FriOctober 31, 2016 [id number] N/ A Medicare Part A Medicare Part A [id number] August Medicare Part A Medicare - Lab/Xray [id number] August Medicare Part B Medicare Of [place] [id number] N/A History of Encounters Visit Date Visit Type Provider 04/16/2017 Office visit JONATHON ALFARO PAD ASSEMBLER 03/18/2017 Nurse visit JONATHON ALFARO PAD ASSEMBLER 11/15/2016 Office visit JONATHON ALFARO PAD ASSEMBLER 11/04/2016 Office visit JONATHON ALFARO PAD ASSEMBLER 07/11/2014 Office visit JONATHON ALFARO PAD ASSEMBLER 05/18/2014 Office visit Jonathan Staton MD 05/02/2014 Office visit Jonathan Staton MD 04/19/2014 [facility] Jonathan Staton MD 04/19/2014 [facility] Salvador Crisostomo MD 04/19/2014 [facility] Jonathan Staton MD
--- OUTSIDE RECORDS SUMMARY | 2019-06-02 00:45 | XMS REPORT ---
Author Author Anabel ALFARO [facility] Address [address] [place], [place] [address] Care Team Providers Care Operator Command Support Systems Name Role Phone JONATHON ALFARO PCP Allergies [...] mg iron-800 mcg-150 mg oral tablet vitamin Y53-swwep acid 500-400 mcg oral tablet Calcium 600 [...] Ordered Description Order Status 03/18/2017 12:00 AM [facility] MEDICARE - flu vaccine administratio n Reviewed 03/18/2017 12:00 AM INFLUENZA VACCINE SPLT PRSRV FREE INC AN TIGEN IM Reviewed 09/08/2017 12:00 AM RADEX ELBOW 2 VIEWS Returned Results Summary Not available. History Of Immunizations Name Date Admin Mfg Name Mfg Code Trade Name Lot# Route Inj Vis Given Vis Pub CVX Influenza 03/18/2017 sanofi pasteur PMC FLUZONE-HIGH DOSE [id number] In tramuscular Left Deltoid 03/18/2017 01/06/2015 135 [...] Elbow pain, left Sep 08 2017 3:08PM Payers Insurance Name Company Name Plan Name Plan Number Policy Number Horace cy Group Number Start Date Medicare RHC Medicare RHC [id number] FriOctober 31, 2016 BCBS [facility] [id number] N/ A Medicare Part A Medicare Part A [id number] August Medicare Part A Medicare - Lab/Xray [id number] August Medicare Part B Medicare Of [place] [id number] N/A History of Encounters Visit Date Visit Type Provider 09/08/2017 Office visit JONATHON ALFARO CUT OFF SAW SET UP OPERATOR 04/16/2017 Office visit JONATHON ALFARO CUT OFF SAW SET UP OPERATOR 03/18/2017 Nurse visit JONATHON ALFARO CUT OFF SAW SET UP OPERATOR 11/15/2016 Office visit JONATHON ALFARO CUT OFF SAW SET UP OPERATOR 11/04/2016 Office visit JONATHON ALFARO CUT OFF SAW SET UP OPERATOR 07/11/2014 Office visit JONATHON ALFARO CUT OFF SAW SET UP OPERATOR 05/18/2014 Office visit Jonathan Staton MD 05/02/2014 Office visit Jonathan Staton MD 04/19/2014 Hospital Jonathan Staton MD 04/19/2014 [facility] Salvador Crisostomo MD 04/19/2014 [facility] Jonathan Staton MD
--- OUTSIDE RECORDS SUMMARY | 2019-06-02 00:45 | XMS REPORT ---
Author Author Anabel ALFARO [facility] Address [address] [place], [place] [address] Care Team Providers Care Dry Chain Worker Name Role Phone JONATHON ALFARO PCP Allergies and Adverse Reactions Name Reaction Notes PENICILLINS SULFA (SULFONAMIDES) Aspirin iodine Plan of Treatment Planned Activity Comments Planned Date Planned Time Plan/Goal ABDOMEN ONE VIEW 04/02/2018 12:00 AM High-Dose Flu vaccine 65 yrs & older, Qu adrivalent, Preservative-free - [facility] Medicare 03/09/2018 12:00 AM Medications Active Name Start Date Estimated Completion Date SIG Co mments metformin 500 mg oral tablet Victoza 3-Shree 0.6 mg/0.1 mL (18 mg/3 mL) subcutaneous pen injector lisinopril 5 mg oral tablet take 1 tablet (5 mg) by oral route once daily levothyroxine oral Vitamin D3 Complete 18 mg iron-800 mcg-150 mg oral tablet vitamin N75-dmqen acid 500-400 mcg oral tablet Calcium 600 [...] Influenza 03/18/2017 sanofi pasteur PMC FLUZONE-HIGH DOSE [id number] In tramuscular Left Deltoid 03/18/2017 01/06/2015 135 [...] Horace cy Group Number Start Date Medicare [facility] Medicare [facility] [id number] FriOctober 31, 2016 [facility] [id number] N/ A Medicare Part A Medicare Part A [id number] August Medicare Part A Medicare - Lab/Xray [id number] August Medicare Part B Medicare Of [place] [id number] N/A History of Encounters Visit Date Visit Type Provider 03/09/2018 Nurse visit JONATHON ALFARO INFECTION CONTROL MANAGER 01/08/2018 Office visit Noah Latif MD 12/29/2017 Surgery Noah Latif MD 09/08/2017 Office visit JONATHON ALFARO INFECTION CONTROL MANAGER 04/16/2017 Office visit JONATHON ALFARO INFECTION CONTROL MANAGER 03/18/2017 Nurse visit JONATHON ALFARO INFECTION CONTROL MANAGER 11/15/2016 Office visit JONATHON ALFARO INFECTION CONTROL MANAGER 11/04/2016 Office visit JONATHON ALFARO INFECTION CONTROL MANAGER 07/11/2014 Office visit JONATHON ALFARO INFECTION CONTROL MANAGER 05/18/2014 Office visit Jonathan Staton MD 05/02/2014 Office visit Jonathan Staton MD 04/19/2014 Hospital Jonathan Staton MD 04/19/2014 [facility] Salvador Crisostomo MD 04/19/2014 [facility] Jonathan Staton MD
--- OUTSIDE RECORDS SUMMARY | 2019-06-02 00:45 | XMS REPORT ---
Author Author Anabel ALFARO [facility] Address [address] [place], [place] [address] Care Team Providers Care Film And Video Graphics Designer Name Role Phone JONATHON ALFARO PCP Allergies [...] mg iron-800 mcg-150 mg oral tablet vitamin G02-yirnc acid 500-400 mcg oral tablet Calcium 600 [...] Given Vis Pub CVX Influenza 03/18/2017 sanofi [facility] PMC FLUZONE-HIGH DOSE [id number] In tramuscular Left Deltoid 03/18/2017 01/06/2015 135 [...] Number Start Date Medicare RHC Medicare RHC [id number] FriOctober 31, 2016 BCBS [facility] [id number] N/ A Medicare Part A Medicare Part A [id number] August Medicare Part A Medicare - Lab/Xray [id number] August Medicare Part B Medicare Of [place] [id number] N/A History of Encounters Visit Date Visit Type Provider 09/08/2017 Office visit JONATHON ALFARO EYE DROPPER ASSEMBLER 04/16/2017 Office visit JONATHON ALFARO EYE DROPPER ASSEMBLER 03/18/2017 Nurse visit JONATHON ALFARO EYE DROPPER ASSEMBLER 11/15/2016 Office visit JONATHON ALFARO EYE DROPPER ASSEMBLER 11/04/2016 Office visit JONATHON ALAFRO EYE DROPPER ASSEMBLER 07/11/2014 Office visit JONATHON ALFARO EYE DROPPER ASSEMBLER 05/18/2014 Office visit V Maddie Staton MD 05/02/2014 Office visit V Maddie Staton MD 04/19/2014 [facility] V Maddie Staton MD 04/19/2014 [facility] Eli Crisostomo MD 04/19/2014 [facility] Jonathan Staton MD
--- OUTSIDE RECORDS SUMMARY | 2019-06-02 00:45 | XMS REPORT ---
Author Author Anabel ALFARO [facility] Address [address] [place], [place] [address] Care Team Providers Care Country Singer Name Role Phone JONATHON ALFARO PCP Allergies [...] mg iron-800 mcg-150 mg oral tablet vitamin R86-csnvj acid 500-400 mcg oral tablet Calcium 600 [...] Given Vis Pub CVX Influenza 03/18/2017 sanofi [facility] PMC FLUZONE-HIGH DOSE [id number] In tramuscular Left Deltoid 03/18/2017 01/06/2015 135 [...] Number Start Date Medicare RHC Medicare RHC [id number] FriOctober 31, 2016 BCBS [facility] [id number] N/ A Medicare Part A Medicare Part A [id number] August Medicare Part A Medicare - Lab/Xray [id number] August Medicare Part B Medicare Of [place] [id number] N/A History of Encounters Visit Date Visit Type Provider 09/08/2017 Office visit JONATHON ALFARO CERTIFIED CREDIT COUNSELOR 04/16/2017 Office visit JONATHON ALFARO CERTIFIED CREDIT COUNSELOR 03/18/2017 Nurse visit JONATHON ALFARO CERTIFIED CREDIT COUNSELOR 11/15/2016 Office visit JONATHON ALFARO CERTIFIED CREDIT COUNSELOR 11/04/2016 Office visit JONATHON ALFARO CERTIFIED CREDIT COUNSELOR 07/11/2014 Office visit JONATHON ALFARO CERTIFIED CREDIT COUNSELOR 05/18/2014 Office visit V Maddie Staton MD 05/02/2014 Office visit V Maddie Staton MD 04/19/2014 [facility] V Maddie Staton MD 04/19/2014 [facility] Eli Crisostomo MD 04/19/2014 [facility] Jonathan Staton MD
--- OUTSIDE RECORDS SUMMARY | 2019-06-02 00:46 | XMS REPORT ---
Author Author Anabel ALFARO [facility] Address [address] [place], [place] [address] Care Team Providers Care Livestock Broker Name Role Phone JONATHON ALFARO PCP Unavailable [...] mg iron-800 mcg-150 mg oral tablet vitamin Z51-zuvql acid 500-400 mcg oral tablet Calcium 600 [...] Influenza 03/18/2017 sanofi pasteur PMC Fluzone High-Dose [id number] In tramuscular Left Deltoid 03/18/2017 01/06/2015 135 [...] Number Start Date Medicare RHC Medicare RHC [id number] FriOctober 31, 2016 [facility] [id number] N/ A Medicare Part A Medicare Part A [id number] August Medicare Part A Medicare - Lab/Xray [id number] August Medicare Part B Medicare Of [place] [id number] N/A History of Encounters Visit Date Visit Type Provider 03/18/2017 Nurse visit JONATHON ALFARO VIDEO EDITOR 11/15/2016 Office visit JONATHON ALFARO VIDEO EDITOR 11/04/2016 Office visit JONATHON ALFARO VIDEO EDITOR 07/11/2014 Office visit JONATHON ALFARO VIDEO EDITOR 05/18/2014 Office visit Jonathan Staton MD 05/02/2014 Office visit Jonathan Staton MD 04/19/2014 Hospital Jonathan Staton MD 04/19/2014 [facility] Salvador Crisostomo MD 04/19/2014 [facility] Jonathan Staton MD
--- OUTSIDE RECORDS SUMMARY | 2019-06-02 00:46 | XMS REPORT | Continuity of Care Document ---
Author Organization Unknown Address Unknown Phone Unavailable Allergies Active Description Code Type Severity Reaction Onset Reported/Identified Relationship to Patient Clinical Status Yes aspirin [id number] Drug Allergy Unknown N/A 02/28/2014 Yes Penicillins [id number] Drug Aller gy Unknown N/A 02/28/2014 Yes Sulfa (Sulfonamide Antibiotics) [id number] Drug Allergy Unknown N/A 014 Medications There is no data. Problems Date Dx Coded Attending Type Code Diagnosis Diagnosed By 06/09/2014 Ot 240.9 06/09/2014 Ot 787.20 06/09/2014 KENIA HACKETT LINK ASSEMBLER Ot 733.90 06/09/2014 KENIA HACKETT LINK ASSEMBLER Ot 780.2 06/09/2014 KENIA HACKETT LINK ASSEMBLER Ot 780.79 06/09/2014 KENIA HACKETT LINK ASSEMBLER Ot 733.00 06/09/2014 KENIA HACKETT LINK ASSEMBLER Ot 724.2 06/09/2014 KENIA HACKETT LINK ASSEMBLER Ot 240.9 06/09/2014 PAUL HACKETT DO Ot 733.00 06/09/2014 PAUL HACKETT DO Ot V58.69 05/30/2015 KENIA HACKETT LINK ASSEMBLER Ot M81.0 06/05/2015 KENIA HACKETT LINK ASSEMBLER Ot M81.0 04/08/2016 Ot 240.9 GOIT ER NOS 04/08/2016 Ot 787.20 DYS PHAGIA, UNSPECIFIED 04/08/2016 KENIA HACKETT LINK ASSEMBLER Ot 733.90 BONE CARTILAGE DIS NOS 04/08/2016 KENIA HACKETT LINK ASSEMBLER Ot 780.2 SYNCOPE AND COLLAPSE 04/08/2016 KENIA HACKETT LINK ASSEMBLER Ot 780.79 OTH MALAISE FATIGUE 04/08/2016 KENIA HACKETT LINK ASSEMBLER Ot 733.00 OSTEOPOROSIS NOS 04/08/2016 KENIA HACKETT LINK ASSEMBLER Ot 724.2 LUMBAGO 04/08/2016 KENIA HACKETT LINK ASSEMBLER Ot 240.9 GOITER NOS 04/08/2016 PAUL HACKETT DO Ot 733.00 OSTEOPOROSIS NOS 04/08/2016 PAUL HACKETT DO Ot V58.69 OTH MED,LT,CURRENT USE 04/08/2016 KENIA HACKETT LINK ASSEMBLER Ot 733.90 BONE CARTILAGE DIS NOS 04/08/2016 KENIA HACKETT LINK ASSEMBLER Ot V76.12 OTH SCREEN MAMMO-MALIGN NEOPLASM OF MAHIN 04/08/2016 KENIA HACKETT LINK ASSEMBLER Ot M81.0 AGE-RELATED OSTEOPOROSIS W/O CURRENT PAT 04/08/2016 KENIA HACKETT LINK ASSEMBLER Ot E05.90 THYROTOXICOSIS, UNSP WITHOUT THYROTOXIC 04/08/2016 KENIA HACKETT LINK ASSEMBLER Ot E11.9 TYPE 2 DIABETES MELLITUS WITHOUT COMPLIC 04/08/2016 KENIA HACKETT LINK ASSEMBLER Ot E55.9 VITAMIN D DEFICIENCY, UNSPECIFIED 04/09/2016 KENIA HACKETT LINK ASSEMBLER Ot E05.90 THYROTOXICOSIS, UNSP WITHOUT THYROTOXIC 04/09/2016 KENIA HACKETT LINK ASSEMBLER Ot E11.9 TYPE 2 DIABETES MELLITUS WITHOUT COMPLIC 04/09/2016 KENIA HACKETT LINK ASSEMBLER Ot E55.9 VITAMIN D DEFICIENCY, UNSPECIFIED 04/09/2016 KENIA HACKETT LINK ASSEMBLER Ot E05.90 THYROTOXICOSIS, UNSP WITHOUT THYROTOXIC 04/09/2016 KENIA HACKETT LINK ASSEMBLER Ot E11.9 TYPE 2 DIABETES MELLITUS WITHOUT COMPLIC 04/09/2016 KENIA HACKETT LINK ASSEMBLER Ot E53.8 DEFICIENCY OF OTHER SPECIFIED B GROUP 04/09/2016 KENIA HACKETT LINK ASSEMBLER Ot E55.9 VITAMIN D DEFICIENCY, UNSPECIFIED 04/09/2016 KENIA HACKETT LINK ASSEMBLER Ot E61.2 MAGNESIUM DEFICIENCY 04/09/2016 KENIA HACKETT LINK ASSEMBLER Ot E78.5 HYPERLIPIDEMIA, UNSPECIFIED 04/09/2016 HACKETT, KENIA L LINK ASSEMBLER Ot M25.512 PAIN IN LEFT SHOULDER 04/09/2016 HACKETTKENIA L LINK ASSEMBLER Ot R10.31 RIGHT LOWER QUADRANT PAIN 04/09/2016 LEWKENIA L LINK ASSEMBLER Ot Z87.442 PERSONAL HISTORY OF URINARY CALCULI 04/09/2016 LEW KENIA Nuñez LINK ASSEMBLER Ot E05.90 THYROTOXICOSIS, UNSP WITHOUT THYROTOXIC 04/09/2016 KENIA HACKETT LINK ASSEMBLER Ot E11.9 TYPE 2 DIABETES MELLITUS WITHOUT COMPLIC 04/09/2016 KENIA HACKETT LINK ASSEMBLER Ot E53.8 DEFICIENCY OF OTHER SPECIFIED B GROUP 04/09/2016 KENIA HACKETT L LINK ASSEMBLER Ot E55.9 VITAMIN D DEFICIENCY, UNSPECIFIED 04/09/2016 KENIA HACKETT L LINK ASSEMBLER Ot E61.2 MAGNESIUM DEFICIENCY 04/09/2016 KENIA HACKETT L LINK ASSEMBLER Ot E78.5 HYPERLIPIDEMIA, UNSPECIFIED 04/09/2016 KENIA HACKETT L LINK ASSEMBLER Ot M25.512 PAIN IN LEFT SHOULDER 04/09/2016 HACKETT KENIA [place] LINK ASSEMBLER Ot R10.31 RIGHT LOWER QUADRANT PAIN 04/09/2016 BENTON HACKETTIA [place] LINK ASSEMBLER Ot Z87.442 PERSONAL HISTORY OF URINARY CALCULI 04/30/2016 KENIA HACKETT LINK ASSEMBLER Ot E05.90 THYROTOXICOSIS, UNSP WITHOUT THYROTOXIC 04/30/2016 BENTON HACKETTIA L LINK ASSEMBLER Ot E11.9 TYPE 2 DIABETES MELLITUS WITHOUT COMPLIC 04/30/2016 KENIA HACKETT LINK ASSEMBLER Ot E53.8 DEFICIENCY OF OTHER SPECIFIED B GROUP 04/30/2016 KENIA HACKETT L LINK ASSEMBLER Ot E55.9 VITAMIN D DEFICIENCY, UNSPECIFIED 04/30/2016 KENIA HACKETT L LINK ASSEMBLER Ot E61.2 MAGNESIUM DEFICIENCY 04/30/2016 KENIA HACKETT L LINK ASSEMBLER Ot E78.5 HYPERLIPIDEMIA, UNSPECIFIED 04/30/2016 KENIA HACKETT L LINK ASSEMBLER Ot M25.512 PAIN IN LEFT SHOULDER 04/30/2016 KENIA HACKETT L LINK ASSEMBLER Ot R10.31 RIGHT LOWER QUADRANT PAIN 04/30/2016 KENIA HACKETT L LINK ASSEMBLER Ot Z87.442 PERSONAL HISTORY OF URINARY CALCULI 05/01/2016 KENIA HACKETT LINK ASSEMBLER Ot E05.90 THYROTOXICOSIS, UNSP WITHOUT THYROTOXIC 05/01/2016 LEWKENIA LINK ASSEMBLER Ot E11.9 TYPE 2 DIABETES MELLITUS WITHOUT COMPLIC 05/01/2016 LEW KENIA [place] LINK ASSEMBLER Ot E53.8 DEFICIENCY OF OTHER SPECIFIED B GROUP 05/01/2016 KENIA HACKETT LINK ASSEMBLER Ot E55.9 VITAMIN D DEFICIENCY, UNSPECIFIED 05/01/2016 KENIA HACKETT LINK ASSEMBLER Ot E61.2 MAGNESIUM DEFICIENCY 05/01/2016 KENIA HACKETT LINK ASSEMBLER Ot E78.5 HYPERLIPIDEMIA, UNSPECIFIED 05/01/2016 KENIA HACKETT LINK ASSEMBLER Ot M25.512 PAIN IN LEFT SHOULDER 05/01/2016 KENIA HACKETT LINK ASSEMBLER Ot R10.31 RIGHT LOWER QUADRANT PAIN 05/01/2016 KENIA HACKETT LINK ASSEMBLER Ot Z87.442 PERSONAL HISTORY OF URINARY CALCULI 08/27/2016 KENIA HACKETT LINK ASSEMBLER Ot E01.0 IODINE-DEFICIENCY RELATED DIFFUSE (ENDEM 08/30/2016 KENIA HACKETT LINK ASSEMBLER Ot M81.0 AGE-RELATED OSTEOPOROSIS W/O CURRENT PAT 09/01/2016 KENIA HACKETT LINK ASSEMBLER Ot M81.0 AGE-RELATED OSTEOPOROSIS W/O CURRENT PAT 09/01/2016 KENIA HACKETT LINK ASSEMBLER Ot E01.0 IODINE-DEFICIENCY RELATED DIFFUSE (ENDEM 09/24/2016 KENIA HACKETT LINK ASSEMBLER Ot M81.0 AGE-RELATED OSTEOPOROSIS W/O CURRENT PAT 09/24/2016 KENIA HACKETT LINK ASSEMBLER Ot E01.0 IODINE-DEFICIENCY RELATED DIFFUSE (ENDEM 09/27/2016 KENIA HACKETT LINK ASSEMBLER Ot M81.0 AGE-RELATED OSTEOPOROSIS W/O CURRENT PAT 09/27/2016 KENIA HACKETT LINK ASSEMBLER Ot E01.0 IODINE-DEFICIENCY RELATED DIFFUSE (ENDEM 07/03/2017 KENIA HACKETT LINK ASSEMBLER Ot M81.0 AGE-RELATED OSTEOPOROSIS W/O CURRENT PAT 07/03/2017 KENIA HACKETT LINK ASSEMBLER Ot M81.0 AGE-RELATED OSTEOPOROSIS W/O CURRENT PAT 07/07/2017 KENIA HACKETT LINK ASSEMBLER Ot M81.0 AGE-RELATED OSTEOPOROSIS W/O CURRENT PAT 07/07/2017 KENIA HACKETT LINK ASSEMBLER Ot M85.88 OTH DISRD OF BONE DENSITY AND STRUCTURE, 07/25/2017 KENIA HACKETT LINK ASSEMBLER Ot M81.0 AGE-RELATED OSTEOPOROSIS W/O CURRENT PAT 07/25/2017 KENIA HACKETT LINK ASSEMBLER Ot M85.88 OTH DISRD OF BONE DENSITY AND STRUCTURE, 09/23/2017 KENIA HACKETT LINK ASSEMBLER Ot 733.90 BONE CARTILAGE DIS NOS 09/23/2017 KENIA HACKETT LINK ASSEMBLER Ot 780.2 SYNCOPE AND COLLAPSE 09/23/2017 KENIA HACKETT LINK ASSEMBLER Ot 780.79 OTH MALAISE FATIGUE 09/23/2017 KENIA HACKETT LINK ASSEMBLER Ot 733.00 OSTEOPOROSIS NOS 09/23/2017 KENIA HACKETT LINK ASSEMBLER Ot 724.2 LUMBAGO 09/23/2017 KENIA HACKETT LINK ASSEMBLER Ot 240.9 GOITER NOS 09/23/2017 PAUL HACKETT DO Ot 733.00 OSTEOPOROSIS NOS 09/23/2017 PAUL HACKETT DO Ot V58.69 OTH MED,LT,CURRENT USE 09/23/2017 KENIA HACKETT LINK ASSEMBLER Ot 733.90 BONE CARTILAGE DIS NOS 09/23/2017 KENIA HACKETT LINK ASSEMBLER Ot V76.12 OTH SCREEN MAMMO-MALIGN NEOPLASM OF MAHIN 09/23/2017 KENIA HACKETT LINK ASSEMBLER Ot M81.0 AGE-RELATED OSTEOPOROSIS W/O CURRENT PAT 09/23/2017 KENIA HACKETT LINK ASSEMBLER Ot E05.90 THYROTOXICOSIS, UNSP WITHOUT THYROTOXIC 09/23/2017 KENIA HACKETT LINK ASSEMBLER Ot E11.9 TYPE 2 DIABETES MELLITUS WITHOUT COMPLIC 09/23/2017 KENIA HACKETT LINK ASSEMBLER Ot E53.8 DEFICIENCY OF OTHER SPECIFIED B GROUP 09/23/2017 KENIA HACKETT LINK ASSEMBLER Ot E55.9 VITAMIN D DEFICIENCY, UNSPECIFIED 09/23/2017 KENIA HACKETT LINK ASSEMBLER Ot E61.2 MAGNESIUM DEFICIENCY 09/23/2017 KENIA HACKETT LINK ASSEMBLER Ot E78.5 HYPERLIPIDEMIA, UNSPECIFIED 09/23/2017 KENIA HACKETT LINK ASSEMBLER Ot M25.512 PAIN IN LEFT SHOULDER 09/23/2017 KENIA HACKETT LINK ASSEMBLER Ot R10.31 RIGHT LOWER QUADRANT PAIN 09/23/2017 KENIA HACKETT LINK ASSEMBLER Ot Z87.442 PERSONAL HISTORY OF URINARY CALCULI 09/23/2017 KENIA HACKETT LINK ASSEMBLER Ot M81.0 AGE-RELATED OSTEOPOROSIS W/O CURRENT PAT 09/23/2017 KENIA HACKETT LINK ASSEMBLER Ot E01.0 IODINE-DEFICIENCY RELATED DIFFUSE (ENDEM 09/23/2017 KENIA HACKETT LINK ASSEMBLER Ot M81.0 AGE-RELATED OSTEOPOROSIS W/O CURRENT PAT 09/23/2017 KENIA HACKETT LINK ASSEMBLER Ot M85.88 OTH DISRD OF BONE DENSITY AND STRUCTURE, 09/25/2017 PAUL HACKETT DO Ot M81.0 AGE-RELATED OSTEOPOROSIS W/O CURRENT PAT 10/15/2017 PAUL HACKETT DO Ot M81.0 AGE-RELATED OSTEOPOROSIS W/O CURRENT PAT 10/23/2017 PAUL HACKETT DO Ot M81.0 AGE-RELATED OSTEOPOROSIS W/O CURRENT PAT 08/28/2018 KENIA HACKETT LINK ASSEMBLER Ot 724.2 LUMBAGO 08/28/2018 KENIA HACKETT LINK ASSEMBLER Ot 240.9 GOITER NOS 08/28/2018 PAUL HACKETT DO Ot 733.00 OSTEOPOROSIS NOS 08/28/2018 PAUL HACKETT DO Ot V58.69 OTH MED,LT,CURRENT USE 08/28/2018 KENIA HACKETT LINK ASSEMBLER Ot 733.90 BONE CARTILAGE DIS NOS 08/28/2018 KENIA HACKETT LINK ASSEMBLER Ot V76.12 OTH SCREEN MAMMO-MALIGN NEOPLASM OF MAHIN 08/28/2018 KENIA HACKETT LINK ASSEMBLER Ot M81.0 AGE-RELATED OSTEOPOROSIS W/O CURRENT PAT 08/28/2018 KENIA HACKETT LINK ASSEMBLER Ot E05.90 THYROTOXICOSIS, UNSP WITHOUT THYROTOXIC 08/28/2018 KENIA HACKETT LINK ASSEMBLER Ot E11.9 TYPE 2 DIABETES MELLITUS WITHOUT COMPLIC 08/28/2018 KENIA HACKETT LINK ASSEMBLER Ot E53.8 DEFICIENCY OF OTHER SPECIFIED B GROUP 08/28/2018 KENIA HACKETT LINK ASSEMBLER Ot E55.9 VITAMIN D DEFICIENCY, UNSPECIFIED 08/28/2018 KENIA HACKETT LINK ASSEMBLER Ot E61.2 MAGNESIUM DEFICIENCY 08/28/2018 KENIA HACKETT LINK ASSEMBLER Ot E78.5 HYPERLIPIDEMIA, UNSPECIFIED 08/28/2018 KENIA HACKETT LINK ASSEMBLER Ot M25.512 PAIN IN LEFT SHOULDER 08/28/2018 KENIA HACKETT LINK ASSEMBLER Ot R10.31 RIGHT LOWER QUADRANT PAIN 08/28/2018 KENIA HACKETT LINK ASSEMBLER Ot Z87.442 PERSONAL HISTORY OF URINARY CALCULI 08/28/2018 KENIA HACKETT LINK ASSEMBLER Ot M81.0 AGE-RELATED OSTEOPOROSIS W/O CURRENT PAT 08/28/2018 KENIA HACKETT LINK ASSEMBLER Ot E01.0 IODINE-DEFICIENCY RELATED DIFFUSE (ENDEM 08/28/2018 KENIA HACKETT LINK ASSEMBLER Ot M81.0 AGE-RELATED OSTEOPOROSIS W/O CURRENT PAT 08/28/2018 KENIA HACKETT LINK ASSEMBLER Ot M85.88 [facility] DISRD OF BONE DENSITY AND STRUCTURE, 08/28/2018 PAUL HACKETT DO Ot M81.0 AGE-RELATED OSTEOPOROSIS W/O CURRENT PAT 08/28/2018 KENIA HACKETT LINK ASSEMBLER Ot M81.0 AGE-RELATED OSTEOPOROSIS W/O CURRENT PAT 08/31/2018 KENIA HACKETT LINK ASSEMBLER Ot M81.0 AGE-RELATED OSTEOPOROSIS W/O CURRENT PAT 05/21/2019 KENIA HACKETT LINK ASSEMBLER Ot E86.0 DEHYDRATION 05/21/2019 KENIA HACKETT LINK ASSEMBLER Ot K52.9 NONINFECTIVE GASTROENTERITIS AND COLITIS 05/21/2019 KENIA HACKETT LINK ASSEMBLER Ot Z53.8 PROCEDURE AND TREATMENT NOT CARRIED OUT 05/25/2019 KENIA HACKETT LINK ASSEMBLER Ot E86.0 DEHYDRATION 05/25/2019 KENIA HACKETT LINK ASSEMBLER Ot K52.9 NONINFECTIVE GASTROENTERITIS AND COLITIS 05/25/2019 KENIA HACKETT LINK ASSEMBLER Ot Z53.8 PROCEDURE AND TREATMENT NOT CARRIED OUT 05/25/2019 KENIA HACKETT LINK ASSEMBLER Ot E86.0 DEHYDRATION 05/25/2019 KENIA HACKETT LINK ASSEMBLER Ot K52.9 NONINFECTIVE GASTROENTERITIS AND COLITIS 05/25/2019 KENIA HACKETT LINK ASSEMBLER Ot Z53.8 PROCEDURE AND TREATMENT NOT CARRIED OUT Procedures There is no data. Results Test Result Range Automated blood complete blood count (he mogram) panel - 04/08/16 10:50 Blood leukocytes automated count (number/volume) 7.8 10*3/uL 4.3-11.0 Blood erythrocytes automated count (number/volume) 4.55 10*6/uL 4.35-5.85 Venous blood hemoglobin measurement (mass/volume) 13.6 g/dL 11.5-16.0 Blood hematocrit (volume fraction) 41 % 35-52 Automated erythrocyte mean corpuscular volume 90 [ foz_us] 80-99 Automated erythrocyte mean corpuscular h emoglobin (mass per erythrocyte) 30 pg 25-34 Automated erythrocyte mean corpuscular h emoglobin concentration measurement (mass/volume) 33 g/dL 32-36 Automated erythrocyte distribution width ratio 13. 3 % 10.0- 14.5 Automated blood platelet count (count/volume) 324 10*3/uL 130-400 Automated blood platelet mean volume measurement 9.5 [foz_us] 7.4-10.4 Comprehensive metabolic panel - 04/08/16 10:50 Serum or plasma sodium measurement (moles/volume) 141 mmol/L 135-145 Serum or plasma potassium measurement (moles/volume) 4.1 mmol/L 3.6-5.0 Serum or plasma chloride measurement (moles/volume) 105 mmol/L 98-107 Carbon dioxide 24 mmol/L 21-32 Serum or plasma anion gap determination (moles/volume) 12 mmol/L 5-14 Serum or plasma urea nitrogen measurement (mass/volume ) 14 mg/dL 7-18 Serum or plasma creatinine measurement (mass/volume) 0.79 mg/dL 0.60-1.30 Serum or plasma urea nitrogen/creatinine mass ratio 18 NRG Serum or plasma creatinine measurement w ith calculation of estimated glomerular filtration rate > NRG Serum or plasma glucose measurement (mass/volume) 123 mg/dL 70-105 Serum or plasma calcium measurement (mass/volume) 9.8 mg/dL 8.5-10.1 Serum or plasma total bilirubin measurement (mass/volu me) 0.4 mg/dL 0.1-1.0 Serum or plasma alkaline phosphatase miguel surement (enzymatic activity/volume) 57 U/L 40-136 Serum or plasma aspartate aminotransfera se measurement (enzymatic activity/volume) 25 U/L 5-34 Serum or plasma alanine aminotransferase measurement (enzymatic activity/volume) 27 U/L 0-55 Serum or plasma protein measurement (mass/volume) 8.2 g/dL 6.4-8.2 Serum or plasma albumin measurement (mass/volume) 4.4 g/dL 3.2-4.5 Magnesium - 04/08/16 10:50 Magnesium 2.1 mg/dL 1.8-2.4 Lipid 1996 panel - 04/08/16 10:50 Serum or plasma triglyceride measurement (mass/volume) 187 mg/dL <150 Serum or plasma cholesterol measurement (mass/volume) 181 mg/dL < 200 Serum or plasma cholesterol in HDL measurement (mass/v olume) 46 mg/dL 40-60 Cholesterol in LDL [mass/volume] in serum or plasma by direct assay 109 mg/dL 1-129 Serum or plasma cholesterol in VLDL measurement (mass/ volume) 37 mg/dL 5-40 Hemoglobin A1c - 04/08/16 10:50 Hemoglobin A1c 7.4 % 4.5-6.2 THYROID STIMULATING HORMONE - 04/08/16 1 0:50 THYROID STIMULATING HORMONE 2.16 u[iU]/mL 0.35-4.94 Serum or plasma thyroxine (T4) free judy urement (mass/volume) - 04/08/16 10:50 Serum or plasma thyroxine (T4) free measurement (mass/ volume) 1.03 ng/dL 0.70-1.48 Serum calcitonin measurement - 04/08/16 10:50 Serum calcitonin measurement < pg/mL 0 .0-5.1 Urine microalbumin measurement by test s trip (mass/volume) - 04/08/16 10:50 Urine creatinine measurement (mass/volume) 117 % NRG Microalbumin [mass/volume] in urine 11.0 % 0.0-20.0 Microalbumin/creatinine [ratio] in urine 9.4 mg/g{ Cre} 0.0- 30.0 Serum or plasma intact pararthyroid horm one measurement (mass/volume) - 04/08/16 10:50 Serum or plasma intact parathyroid hormone measurement (mass/volume) 38 pg/mL 10-65 Bio-intact parathyroid hormone (PTH) measurement with calcium 9.7 % 8.5-10.5 Total triiodothyronine (T3) measurement - 04/08/16 10:50 Total triiodothyronine (T3) measurement 1.0 % 0.6-1.8 Cyanocobalamin measurement - 04/08/16 10 :50 Vitamin B12 976 pg/mL 200-1000 25-hydroxyvitamin D measurement - 10:50 25-hydroxy vitamin D measurement 43 % 30-100 Complete blood count (CBC) with automate d white blood cell (WBC) differential - 05/06/19 17:45 Blood leukocytes automated count (number/volume) 10.7 10*3/uL 4.3-11.0 Blood erythrocytes automated count (number/volume) 4.57 10*6/uL 4.35-5.85 Venous blood hemoglobin measurement (mass/volume) 13.8 g/dL 11.5-16.0 Blood hematocrit (volume fraction) 42 % 35-52 Automated erythrocyte mean corpuscular volume 92 [ foz_us] 80-99 Automated erythrocyte mean corpuscular h emoglobin (mass per erythrocyte) 30 pg 25-34 Automated erythrocyte mean corpuscular h emoglobin concentration measurement (mass/volume) 33 g/dL 32-36 Automated erythrocyte distribution width ratio 13. 6 % 10.0- 14.5 Automated blood platelet count (count/volume) 310 10*3/uL 130-400 Automated blood platelet mean volume measurement 9.6 [foz_us] 7.4-10.4 Automated blood neutrophils/100 leukocytes 87 % 42-75 Automated blood lymphocytes/100 leukocytes 9 % 12-44 Blood monocytes/100 leukocytes 3 % 0-12 Automated blood eosinophils/100 leukocytes 1 % 0-10 Automated blood basophils/100 leukocytes 0 % 0-10 Blood neutrophils automated count (number/volume) 9.3 10*3 1.8-7.8 Blood lymphocytes automated count (number/volume) 0.9 10*3 1.0-4.0 Blood monocytes automated count (number/volume) 0. 3 10*3 0.0-1.0 Automated eosinophil count 0.1 10*3/uL 0 .0-0.3 Automated blood basophil count (count/volume) 0.0 10*3/uL 0.0-0.1 Comprehensive metabolic panel - 05/06/19 17:45 Serum or plasma sodium measurement (moles/volume) 139 mmol/L 135-145 Serum or plasma potassium measurement (moles/volume) 4.3 mmol/L 3.6-5.0 Serum or plasma chloride measurement (moles/volume) 106 mmol/L 98-107 Carbon dioxide 21 mmol/L 21-32 Serum or plasma anion gap determination (moles/volume) 12 mmol/L 5-14 Serum or plasma urea nitrogen measurement (mass/volume ) 25 mg/dL 7-18 Serum or plasma creatinine measurement (mass/volume) 0.80 mg/dL 0.60-1.30 Serum or plasma urea nitrogen/creatinine mass ratio 31 NRG Serum or plasma creatinine measurement w ith calculation of estimated glomerular filtration rate > NRG Serum or plasma glucose measurement (mass/volume) 117 mg/dL 70-105 Serum or plasma calcium measurement (mass/volume) 9.1 mg/dL 8.5-10.1 Serum or plasma total bilirubin measurement (mass/volu me) 0.4 mg/dL 0.1-1.0 Serum or plasma alkaline phosphatase miguel surement (enzymatic activity/volume) 42 U/L 40-136 Serum or plasma aspartate aminotransfera se measurement (enzymatic activity/volume) 26 U/L 5-34 Serum or plasma alanine aminotransferase measurement (enzymatic activity/volume) 29 U/L 0-55 Serum or plasma protein measurement (mass/volume) 7.6 g/dL 6.4-8.2 Serum or plasma albumin measurement (mass/volume) 4.3 g/dL 3.2-4.5 CALCIUM CORRECTED 8.9 mg/dL 8.5-10.1 Magnesium - 05/06/19 17:45 Magnesium 1.8 mg/dL 1.6-2.4 Manual absolute plasma cell count - 12/0 10/18 17:45 Blood monocytes/100 leukocytes 2 % NRG Manual blood segmented neutrophils/100 leukocytes 84 % NRG Blood band neutrophils/100 leukocytes 3 % NRG Manual blood lymphocytes/100 leukocytes 9 % NRG Manual eosinophils/100 leukocytes in nose 2 % NRG Blood erythrocyte morphology finding identification N NRG Encounters ACCT No. Visit Date/Time Discharge Status Pt. Type Provider Facility Loc./Unit Complaint [id number] 10/08/2018 16:55:06 10/08/2018 23:59: 59 CLS Outpatient Noah Latif [id number] 04/09/2018 10:08:14 04/09/2018 23:59: 59 CLS Outpatient Noah Latif [id number] 03/09/2018 11:43:46 03/09/2018 23:59: 59 CLS Outpatient JONATHON ALFARO [id number] 09/08/2017 15:59:01 09/08/2017 23:59: 59 CLS Outpatient JONATHON ALFARO [id number] 03/18/2017 14:25:45 03/18/2017 23:59: 59 CLS Outpatient JONATHON ALFARO [id number] 11/15/2016 10:11:49 11/15/2016 23:59: 59 CLS Outpatient JONATHON ALFARO [id number] 11/04/2016 16:35:40 11/04/2016 23:59: 59 CLS Outpatient JONATHON ALFARO [id number] 09/28/2014 08:20:09 09/28/2014 23:59: 59 CLS Outpatient Brionna, V S [id number] 07/11/2014 11:28:12 07/11/2014 23:59: 59 CLS Outpatient JONATHON ALFARO [id number] 07/05/2014 13:51:11 07/05/2014 23:59: 59 CLS Outpatient Salvador Crisostomo [id number] 05/18/2014 12:01:55 05/18/2014 23:59: 59 CLS Outpatient Brionna, V S [id number] 05/02/2014 11:45:28 05/02/2014 23:59: 59 CLS Outpatient Brionna, V S [id number] 04/29/2014 16:43:03 04/29/2014 23:59: 59 CLS Outpatient Brionna, V S [id number] 05/06/2019 17:06:00 019 23:59:59 CLS Outpatient HACKETT KENIA L LINK ASSEMBLER [facility] GASTROENTERTIS, DEHYDRATION [id number] 08/28/2018 09:59:00 10:45:00 DIS Outpatient HACKETT, KENIA L LINK ASSEMBLER [facility] OSTEOPOROSIS [id number] 09/24/2017 13:57:00 018 23:59:59 CLS Outpatient HACKETT PAUL Demetrio [facility] OSTEOPOROSIS [id number] 07/03/2017 10:51:00 23:59:59 CLS Outpatient HACKETT, KENIA L LINK ASSEMBLER [facility] RAD OSTEOPEROSIS [id number] 11/29/2016 11:33:00 017 23:59:59 CLS Preadmit HACKETTBENTON HERNDONIA L LINK ASSEMBLER [facility] RAD RADICULOPATHY [id number] 08/26/2016 12:43:00 017 23:59:59 CLS Outpatient HACKETTBENTON YANESIA L LINK ASSEMBLER [facility] OSTEPOROSIS [id number] 08/26/2016 12:05:00 017 23:59:59 CLS Outpatient HACKETT, KENIA L LINK ASSEMBLER [facility] RAD THYROMEGALY [id number] 04/08/2016 10:40:00 016 23:59:59 CLS Outpatient HACKETT KENIA L L[employer] [facility] RAD ACUTE ABD PAIN, HX OF RENAL STONES,DIABETES [id number] 05/03/2015 12:49:00 23:59:59 CLS Outpatient HACKETT KENIA L L[employer] [facility] OSTEOPOROSIS [id number] 06/09/2014 14:21:00 23:59:59 CLS Outpatient HACKETT KENIA L LINK AS[employer]ER [facility] RAD PNUEMONIA [id number] 06/09/2014 11:15:00 23:59:59 CLS Outpatient HACKETTKENIA HERNDON LINK ASSEM[employer]ER [facility] RAD OSTEOPOROSIS [id number] 03/02/2014 13:23:00 23:59:59 CLS Outpatient HACKETT PAUL MONTERROSO [facility] OSTEO [id number] 12/08/2013 09:58:00 23:59:59 CLS Outpatient KENIA HACKETT LINK [employer]SEM[employer] [facility] RAD THYROMEGLY [id number] 04/22/2013 10:41:00 23:59:59 CLS Outpatient HACKETTKENIA HERNDON LINK [employer]SEM[employer]ER 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 RAD FATIGUE,SYNCOPE [id number] 10/16/2012 08:47:00 23:59:59 CLS Outpatient HACKETTKENIA HERNDON LINK [employer]SEM[employer]ER Via [facility] RAD OSTEOPOROSIS [id number] 01/30/2011 13:06:00 Document Registration
--- OUTSIDE RECORDS SUMMARY | 2019-06-02 00:46 | XMS REPORT ---
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 Medications Active Name Start Date Estimated Completion Date SIG Co mments metformin oral tablet 500 mg Victoza 3-Shree subcutaneous pen injector 0.6 mg/0.1 mL (18 mg/3 mL) lisinopril oral tablet 5 mg take 1 tablet (5 mg) by oral route once daily simvastatin oral tablet 10 mg take 1 tabl et by oral route daily levothyroxine oral Vitamin D3 Complete oral tablet 18 mg iron-800 mcg-150 mg vitamin P67-rtymi acid oral tablet 500-400 mcg Calcium 600 oral tablet 600 mg (1,500 mg) Combigan ophthalmic drops 0.2-0.5 % instill 1 drop into right eye by ophthalmic route every 12 hours Problem List Description Status Onset Calculus of kidney Active 05/31/2014 Hypothyroidism Active 09/23/2014 Hypertension Active 09/23/2014 Hyperlipemia Active 09/23/2014 Diabetes type 2, controlled Active 09/23/2014 Vital Signs Date Time BP-Sys(mm[Hg] BP-Kayleen(mm[Hg]) HR(bpm) RR(rpm) Temp WT HT HC BMI BSA BMI Percentile O2 Sat(%) 07/11/2014 10:31:00 AM 126 mmHg 74 mmHg 68 bpm 18 rpm 146.5 lbs 60 in 28.61 kg/m2 1.68 m2 98 % 05/18/2014 11:17:00 AM 150 lbs 60 in 29.2946 kg/m 1.6972 m 05/02/2014 10:54:00 AM 149 lbs 60 in 29.10 kg/ m2 1.69 m2 Social History Name Description Comments Alcohol Tobacco Never smoker History of Procedures Not available. Results Summary Data and Description Results 04/20/2014 8:15 AM GLUCOSE 125.0 mg/dLSODIUM 14 2.0 mmol/LPOTASSIUM 4.10 mmol/LCHLORIDE 110.0 mmol/LCO2 23.0 mmol/LBUN 14.0 mg/dLCREATININE 0.80 mg/dLCALCIUM 8.30 mg/dLeGFR 60 WBC 10.7 RBC 4.03 HGB 12.10 g/dLHCT 36.60 %MCV 91.0 fLMCH 30.0 pgMCHC 33.10 g/dLRDW CV 13.0 %MPV 10.10 fLPLT 238 %NEUT 75.0 %%LYMP 18.90 %%MONO 6.0 %%EOS 0.0 %%BASO 0.10 %#NEUT 8.00 #LYMP 2.01 #MONO 0.64 #EOS 0.00 #BASO 0.01 History Of Immunizations Not available. History of [...] 2014 10:34AM Hypothyroidism Jul 11 2014 10:34AM Payers Insurance Name Company Name Plan Name Plan Number Policy Number Horace cy Group Number Start Date Medicare Part A Medicare Part A [id number] [facility] [id number] N/ A Medicare Part B Medicare Of [place] [id number] N/A History of Encounters Visit Date Visit Type Provider 07/11/2014 Office visit JONATHON ALFARO DIRECTOR OF OCCUPATIONAL HEALTH 05/18/2014 Office visit Jonathan Staton MD 05/02/2014 Office visit Jonathan Staton MD 04/19/2014 Hospital Jonathan Staton MD 04/19/2014 Carri Crisostomo MD
== END 2019-05-06 20:40 | disposition home or self-care (01) ==
LOC: 4TH 17:06 → 4THo 17:06 → SDC 17:06 → 4THo 20:40
PROVIDERS: ATTEND Nurse Practitioner Family
DX: K52.9 Noninfective gastroenteritis and colitis, unspecified (principal); E86.0 Dehydration; Z53.8 Procedure and treatment not carried out for other reasons
CPT/HCPCS: 36415; 80053; 83735; 85007; 85027